=== PATIENT | male | born 1990 | race Caucasian/White ===

== ENCOUNTER 2017-02-21 20:28 | Emergency (ER) | payer OTHER, BC ==
[~2017-02-21] VITALS: Ht 190.5 cm; Wt 81.7 kg
--- NOTE | ~2017-02-21 | EKG ---
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
[~2017-02-21 20:28] MED LIST: LITHIUM CARBON300 M3 PO; LITHIUM CARBON600 MG PO; LORTAB 7.5/5001 TA1 PO; NICOTINE TRANSD21 M1; NOHOMEMEDICATIONS; ONDANSETRON HCL4 M2 PO; PROAIR HFA8.5 GM IH; ZPAK PO
[2017-02-21 21:15] LABS: BASOPHILS 0.7 % (0.0-2.0); HEMATOCRIT 43.5 % (42.0-52.0); LYMPHOCYTES 13.4 % (24.0-44.0); MANUAL DIFF NO; MCH 30.4 pg (26.0-34.0); MCHC 34.5 g/dL (28.0-37.0); MCV 88.2 fL (80.0-100.0); MONOCYTES 6.4 % (1.0-8.0); PLATELET COUNT 171 thou/uL (150-400); POLYS 76.5 % (36.0-66.0); RBC 4.93 mil/uL (4.50-6.00); RDW 12.7 % (10.5-14.5); WBC 9.2 thou/uL (4.0-11.0)
[2017-02-21 21:19] LABS: ANION GAP 6 mmol/L (7-16); BUN 7 mg/dL (7-18); CALCIUM 9.6 mg/dL (8.5-10.1); CHLORIDE 105 mmol/L (98-107); CO2 29 mmol/L (21-32); CREATININE 0.9 mg/dL (0.7-1.3); GLUCOSE 93 mg/dL (74-106); POTASSIUM 3.9 mmol/L (3.5-5.1); SODIUM 140 mmol/L (136-145)
[2017-02-21 21:28] LABS: ALBUMIN 4.4 g/dL (3.4-5.0); ALKALINE PHOSPHATASE 52 U/L (46-116); SGOT 24 U/L (15-37); SGPT 28 U/L (30-65); TOTAL BILIRUBIN 0.6 mg/dL (<0.1-1.0); TOTAL PROTEIN 7.3 g/dL (6.4-8.2); TROPONIN-I < 0.04 ng/mL (<0.04-0.07)
[2017-02-21] MEDS ORDERED: ONDANSETRON HCL4 M2 PO (22:28)
[2017-02-21 22:42] VITALS: BP 125/64
== END 2017-02-21 22:45 | disposition home or self-care (01) ==
LOC: ER 20:28
PROVIDERS: Nurse Practitioner Family
DX: T67.0XXA Heatstroke and sunstroke, initial encounter (principal); F31.9 Bipolar disorder, unspecified; J45.909 Unspecified asthma, uncomplicated; Z98.890 Other specified postprocedural states; Z87.891 Personal history of nicotine dependence; X58.XXXA Exposure to other specified factors, initial encounter; Y93.89 Activity, other specified; Y92.89 Other specified places as the place of occurrence of the external cause; Y99.8 Other external cause status

== ENCOUNTER 2019-07-07 20:48 | Emergency (ER) | payer OTHER, BC ==
[~2019-07-07] VITALS: Ht 190.5 cm; Wt 72.6 kg
[2019-07-07 21:10] LABS: URINE BILIRUBIN NEGATIVE (Negative); URINE BLOOD NEGATIVE (Negative); URINE CLARITY CLEAR; URINE COLOR YELLOW; URINE GLUCOSE-RANDOM* NEGATIVE (Negative); URINE KETONES NEGATIVE (Negative); URINE LEUKOCYTES-REFLEX NEGATIVE (Negative); URINE NITRITE-REFLEX NEGATIVE (Negative); URINE PROTEIN (DIPSTICK) NEGATIVE (Negative); URINE SPECIFIC GRAVITY 1.015 (1.005-1.035); URINE UROBILINOGEN 0.2 E.U./dl (0.2-1.0)
[2019-07-07 21:19] LABS: AMP/METHAMP Negative (Negative); BARBITURATES Negative (Negative); BENZODIAZEPINES Negative (Negative); COCAINE Negative (Negative); METHADONE Negative (Negative); OPIATES Negative (Negative); PCP Negative (Negative)
[2019-07-07 22:03] LABS: ABSOLUTE NEUTROPHILS 4.4 thou/uL (1.4-8.2); BASOPHILS 0.6 % (0.0-2.0); HEMATOCRIT 44.6 % (42.0-52.0); HEMOGLOBIN 14.8 gm/dL (14.0-18.0); LYMPHOCYTES 22.7 % (24.0-44.0); MCH 29.8 pg (26.0-34.0); MCHC 33.2 g/dL (28.0-37.0); MCV 89.9 fL (80.0-100.0); MONOCYTES 6.7 % (1.0-8.0); PLATELET COUNT 191 thou/uL (150-400); RBC 4.96 mil/uL (4.50-6.00); RDW 12.6 % (10.5-14.5); WBC 6.7 thou/uL (4.0-11.0)
[2019-07-07 22:07] LABS: ANION GAP 10 mmol/L (7-16); BUN 6 mg/dL (7-18); CALCIUM 8.9 mg/dL (8.5-10.1); CHLORIDE 102 mmol/L (98-107); CO2 25 mmol/L (21-32); CREATININE 0.8 mg/dL (0.7-1.3); GLUCOSE 86 mg/dL (74-106); POTASSIUM 3.9 mmol/L (3.5-5.1); SODIUM 137 mmol/L (136-145)
[2019-07-07 22:13] LABS: ALBUMIN 4.3 g/dL (3.4-5.0); SGOT 13 U/L (15-37); SGPT 10 U/L (30-65); TOTAL BILIRUBIN 0.5 mg/dL (<0.1-1.0); TOTAL PROTEIN 7.1 g/dL (6.4-8.2)
[2019-07-07 22:31] LABS: SALICYLATE 2.9 mg/dL (2.8-20.0)
[2019-07-08 02:52] VITALS: BP 130/73
--- NOTE | 2019-07-10 11:12 | EKG ---
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[place] : 1990 Requested By: Hugo Moore Order Number: [id number] MD: Donald Berkowitz Measurements Intervals [place] Rate: 56 P: 45 [place]: 165 QRS: 7 QRSD: 105 T: 33 QT: 398 QTc: 385 Interpretive Statements Sinus rhythm RSR' in V1 or V2, probably normal variant Compared to ECG 02/21/2017 20:46:38 RSR' in V1 or V2 now present Sinus bradycardia no longer present Electronically Signed On 07-10-2019 11:12:15 [employer] by Donald Berkowitz [email or web address] <ELECTRONICALLY SIGNED> By: Donald Berkowitz MD 07/10/19 1112 31 31 Donald Berkowitz MD /EPI
== END 2019-07-08 02:52 | disposition home or self-care (01) ==
LOC: ER 20:48
PROVIDERS: Emergency Medicine
DX: R45.851 Suicidal ideations (principal); F31.9 Bipolar disorder, unspecified; J45.909 Unspecified asthma, uncomplicated; F17.210 Nicotine dependence, cigarettes, uncomplicated

== ENCOUNTER 2020-02-03 17:25 | Emergency (ER) | payer OTHER, BC ==
[~2020-02-03] VITALS: Ht 190.5 cm; Wt 77.1 kg
[2020-02-03 17:40] LABS: URINE BILIRUBIN NEGATIVE (Negative); URINE BLOOD NEGATIVE (Negative); URINE CLARITY CLEAR; URINE COLOR YELLOW; URINE GLUCOSE-RANDOM* NEGATIVE (Negative); URINE KETONES NEGATIVE (Negative); URINE LEUKOCYTES-REFLEX NEGATIVE (Negative); URINE NITRITE-REFLEX NEGATIVE (Negative); URINE PROTEIN (DIPSTICK) NEGATIVE (Negative); URINE UROBILINOGEN 0.2 E.U./dl (0.2-1.0)
[2020-02-03 17:54] LABS: AMP/METHAMP Negative (Negative); BARBITURATES Negative (Negative); BENZODIAZEPINES Negative (Negative); COCAINE Negative (Negative); METHADONE Negative (Negative); OPIATES Negative (Negative); PCP Negative (Negative)
[2020-02-03 18:10] LABS: ABSOLUTE NEUTROPHILS 4.2 thou/uL (1.4-8.2); EOSINOPHILS 1.6 % (0.0-3.0); HEMATOCRIT 45.8 % (42.0-52.0); LYMPHOCYTES 21.2 % (24.0-44.0); MCH 30.1 pg (26.0-34.0); MCHC 34.9 g/dL (28.0-37.0); MCV 86.4 fL (80.0-100.0); MONOCYTES 6.2 % (1.0-8.0); PLATELET COUNT 208 thou/uL (150-400); RDW 12.6 % (10.5-14.5); WBC 6.1 thou/uL (4.0-11.0)
[2020-02-03 18:13] LABS: CALCIUM 8.9 mg/dL (8.5-10.1); CREATININE 0.9 mg/dL (0.7-1.3); POTASSIUM 3.5 mmol/L (3.5-5.1)
[2020-02-03 18:19] LABS: ALBUMIN 4.4 g/dL (3.4-5.0); TOTAL BILIRUBIN 0.9 mg/dL (0.2-1.0); TOTAL PROTEIN 7.2 g/dL (6.4-8.2)
[2020-02-03 21:22] VITALS: BP 140/86
--- NOTE | 2020-02-04 09:34 | EKG ---
[facility] [place] [address] ELECTROCARDIOGRAM REPORT Name: KELLY MORENO [facility] [id number] Admission: 02/03/20 Attend Phys: Discharge: 02/03/20 Date of : [birth year] Report #: [id number] THIS REPORT FOR: cc: Devon Chaudhari MD, Neal A. MD Couchonnal, Luis F. 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1990 Requested By: Marita Robbins Order Number: [id number] MD: Donald Berkowitz Measurements Intervals [place] Rate: 75 P: 69 [place]: 147 QRS: 15 QRSD: 95 T: 41 QT: 363 QTc: 406 Interpretive Statements Sinus rhythm Probable left atrial enlargement RSR' in V1 or V2, right VCD or RVH Compared to ECG 07/07/2019 21:32:09 Right ventricular hypertrophy now present Electronically Signed On 02-04-2020 9:32:19 CDT by Donald Berkowitz [email or web address] <ELECTRONICALLY SIGNED> By: Donald Berkowitz MD 02/04/20 0932 175 175 Donald Berkowitz MD /EPI
== END 2020-02-03 22:30 | disposition still patient (30) ==
LOC: ER 17:25
PROVIDERS: Physician Assistant
DX: R45.851 Suicidal ideations (principal); F31.9 Bipolar disorder, unspecified; J45.909 Unspecified asthma, uncomplicated; F17.210 Nicotine dependence, cigarettes, uncomplicated

== ENCOUNTER 2020-06-30 23:52 | Emergency (ER) | payer OTHER, BC ==
[~2020-06-30] VITALS: Ht 190.5 cm; Wt 74.8 kg
[2020-07-01 00:34] LABS: URINE BILIRUBIN NEGATIVE (Negative); URINE BLOOD NEGATIVE (Negative); URINE CLARITY CLEAR; URINE COLOR YELLOW; URINE GLUCOSE-RANDOM* NEGATIVE (Negative); URINE KETONES 1+ (Negative); URINE LEUKOCYTES-REFLEX NEGATIVE (Negative); URINE NITRITE-REFLEX NEGATIVE (Negative); URINE PROTEIN (DIPSTICK) NEGATIVE (Negative)
[2020-07-01 00:42] LABS: AMP/METHAMP Negative (Negative); BARBITURATES Negative (Negative); BENZODIAZEPINES Negative (Negative); COCAINE Negative (Negative); METHADONE Negative (Negative); OPIATES Negative (Negative); PCP Negative (Negative)
[2020-07-01] MEDS ORDERED: LITHIUM CARBON300 M6 PO (00:51)
[2020-07-01] MEDS ORDERED: ESKALITH300 MG PO (00:51)
[2020-07-01 00:52] LABS: ABSOLUTE NEUTROPHILS 4.7 thou/uL (1.4-8.2); BASOPHILS 0.9 % (0.0-2.0); EOSINOPHILS 1.5 % (0.0-3.0); HEMATOCRIT 46.4 % (42.0-52.0); HEMOGLOBIN 16.1 gm/dL (14.0-18.0); LYMPHOCYTES 16.8 % (24.0-44.0); MCH 30.2 pg (26.0-34.0); MCHC 34.8 g/dL (28.0-37.0); MCV 86.8 fL (80.0-100.0); MONOCYTES 8.3 % (1.0-8.0); PLATELET COUNT 183 thou/uL (150-400); POLYS 72.5 % (36.0-66.0); RBC 5.35 mil/uL (4.50-6.00); RDW 12.5 % (10.5-14.5); WBC 6.5 thou/uL (4.0-11.0)
[2020-07-01 01:19] LABS: CALCIUM 9.4 mg/dL (8.5-10.1); CREATININE 0.7 mg/dL (0.7-1.3); POTASSIUM 3.8 mmol/L (3.5-5.1)
[2020-07-01 01:25] LABS: ALBUMIN 4.5 g/dL (3.4-5.0); TOTAL BILIRUBIN 0.6 mg/dL (0.2-1.0); TOTAL PROTEIN 7.5 g/dL (6.4-8.2)
[2020-07-01 06:48] LABS: SALICYLATE < 2.8 mg/dL (2.8-20.0)
--- NOTE | 2020-07-01 11:19 | EKG ---
[facility] [place] [address] ELECTROCARDIOGRAM REPORT Name: KELLY MORENO Room #: [facility]..#: [id number] Admission: 06/30/20 Attend Phys: Discharge: Date of : [birth year] Report #: [id number] THIS REPORT FOR: cc: Devon Chaudhari MD, Neal A. MD Couchonnal, Luis F. 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: [facility] : 1990 Requested By: Percy Harrison Order Number: [id number] MD: Donald Berkowitz Measurements Intervals [place] Rate: 75 P: 68 [place]: 150 QRS: 21 QRSD: 99 T: 54 QT: 368 QTc: 411 Interpretive Statements Sinus rhythm Consider left atrial enlargement Compared to ECG 02/03/2020 17:52:08 Right ventricular hypertrophy no longer present Electronically Signed On 07-01-2020 11:18:56 CDT by Donald Berkowitz [email or web address] <ELECTRONICALLY SIGNED> By: Donald Berkowitz MD 07/01/20 1118 0043 0043 Donald Berkowitz MD /EPI
[2020-07-01 13:47] VITALS: BP 126/75
== END 2020-07-01 11:50 ==
LOC: ER 23:52
PROVIDERS: Emergency Medicine
DX: R45.851 Suicidal ideations (principal); Z20.828 Contact with and (suspected) exposure to other viral communicable diseases; F31.9 Bipolar disorder, unspecified; J44.9 Chronic obstructive pulmonary disease, unspecified; F17.210 Nicotine dependence, cigarettes, uncomplicated; Z79.899 Other long term (current) drug therapy

== ENCOUNTER 2020-11-26 17:15 | Emergency (ER) | payer OTHER, BC ==
[~2020-11-26] VITALS: Ht 167.6 cm; Wt 54.4 kg
[~2020-11-26 17:15] MED LIST changes: +ESKALITH300 MG PO; +LITHIUM CARBON300 M6 PO
[2020-11-26 17:48] LABS: URINE BILIRUBIN NEGATIVE (Negative); URINE BLOOD NEGATIVE (Negative); URINE CLARITY CLEAR; URINE COLOR YELLOW; URINE GLUCOSE-RANDOM* NEGATIVE (Negative); URINE KETONES NEGATIVE (Negative); URINE LEUKOCYTES-REFLEX NEGATIVE (Negative); URINE NITRITE-REFLEX NEGATIVE (Negative); URINE PROTEIN (DIPSTICK) NEGATIVE (Negative); URINE SPECIFIC GRAVITY 1.015 (1.005-1.035); URINE UROBILINOGEN 0.2 E.U./dl (0.2-1.0)
[2020-11-26 17:57] LABS: AMP/METHAMP Negative (Negative); BARBITURATES Negative (Negative); BENZODIAZEPINES Negative (Negative); COCAINE Negative (Negative); METHADONE Negative (Negative); OPIATES Negative (Negative); PCP Negative (Negative)
[2020-11-26 18:41] LABS: ABSOLUTE NEUTROPHILS 3.7 thou/uL (1.4-8.2); EOSINOPHILS 4.1 % (0.0-3.0); HEMATOCRIT 46.4 % (42.0-52.0); HEMOGLOBIN 15.7 gm/dL (14.0-18.0); LYMPHOCYTES 24.9 % (24.0-44.0); MCH 30.2 pg (26.0-34.0); MCHC 33.7 g/dL (28.0-37.0); MCV 89.4 fL (80.0-100.0); MONOCYTES 7.9 % (1.0-8.0); PLATELET COUNT 176 thou/uL (150-400); POLYS 62.1 % (36.0-66.0); RDW 12.7 % (10.5-14.5)
[2020-11-26 18:49] LABS: ANION GAP 9 mmol/L (7-16); BUN 6 mg/dL (7-18); CHLORIDE 103 mmol/L (98-107); CO2 29 mmol/L (21-32); CREATININE 0.8 mg/dL (0.7-1.3); GLUCOSE 83 mg/dL (74-106); POTASSIUM 3.6 mmol/L (3.5-5.1); SODIUM 141 mmol/L (136-145)
[2020-11-26 18:55] LABS: ALBUMIN 4.5 g/dL (3.4-5.0); SALICYLATE < 2.8 mg/dL (2.8-20.0); SGOT 14 U/L (15-37); SGPT 20 U/L (16-63); TOTAL BILIRUBIN 0.4 mg/dL (0.2-1.0); TOTAL PROTEIN 7.3 g/dL (6.4-8.2)
--- NOTE | 2020-11-27 07:27 | EKG ---
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: WINNIE : 1990 Requested By: Percy Harrison Order Number: [id number] MD: Reji Quijano Measurements Intervals [place] Rate: 72 P: 66 [place]: 157 QRS: 8 QRSD: 104 T: 51 QT: 406 QTc: 445 Interpretive Statements Sinus rhythm Probable left atrial enlargement RSR' in V1 or V2, right VCD or RVH Left ventricular hypertrophy Baseline wander in lead(s) V4 Compared to ECG 07/01/2020 00:43:05 Right ventricular hypertrophy now present RSR' in V1 or V2 now present Left ventricular hypertrophy now present Electronically Signed On 11-27-2020 7:27:12 CDT by Reji Quijano [email or web address] <ELECTRONICALLY SIGNED> By: Reji Quijano MD, FACC 11/27/20 0727 1804 1804 Reji Quijano MD, [facility] /EPI
[2020-11-27 15:09] VITALS: BP 108/80
== END 2020-11-27 15:14 ==
LOC: ER 17:15
PROVIDERS: Emergency Medicine
DX: R45.851 Suicidal ideations (principal); J45.909 Unspecified asthma, uncomplicated; F17.210 Nicotine dependence, cigarettes, uncomplicated; Z20.822 Contact with and (suspected) exposure to COVID-19